=== PATIENT | male | born 1990 | race Caucasian/White ===

== ENCOUNTER 2019-11-28 13:56 | Emergency (ER) | payer OTHER ==
[~2019-11-28] VITALS: Ht 180.3 cm; Wt 92.5 kg
[2019-11-28 14:12] VITALS: BP 126/36; Ht 180.3 cm; Wt 92.5 kg
== END 2019-11-28 15:56 | disposition home or self-care (01) ==
LOC: ED 13:56
DX: S93.402A Sprain of unspecified ligament of left ankle, initial encounter (principal); V00.121A Fall from non-in-line roller-skates, initial encounter; Y93.51 Activity, roller skating (inline) and skateboarding; Y92.89 Other specified places as the place of occurrence of the external cause; Y99.8 Other external cause status